=== PATIENT | female | born 1940 | race Caucasian/White ===

== ENCOUNTER 2016-08-13 03:20 | Emergency (ER) | payer OTHER ==
[2016-08-13 03:57] VITALS: BMI 24.6
[2016-08-13] MEDS ORDERED: ONDANSETRON 4 MG/2 ML VIAL IVPUSH ONE (04:10)
[2016-08-13] MEDS ORDERED: SODIUM CHLORIDE 500 ML IV STA (04:10)
[2016-08-13] MEDS ORDERED: morphine CARPU-JECT 4 MG/1 ML DISP.SYRIN IVPUSH ONE (04:10)
--- NOTE | 2016-08-13 04:34 | PDOC ---
History of Present Illness - General Chief Complaint: Pain, Acute Stated Complaint: L ARM PAIN S/P FALL Time Seen by Provider: 08/13/16 03:44 History Source: Patient, Family, Significant Other, Assistant [employer] Used Exam Limitations: Language Barrier - History of Present Illness Initial Comments: 08/13/16 04:30 75yo Female patient presents to ED c/o fall, left arm injury, and dizziness. Patient states while ascending her stairs last night around 10pm, she felt her legs get weak, lost her balance and fell onto her left shoulder/arm. Patient reports taking 1000mg Tylenol at 11pm then again at 1 am with minimal relief. She reports unable to move arm. Patient denies head injury, neck pain, or LOC. Patient denies any other complaints at this time. Occurred: reports: yesterday (10pm) Severity: reports: severe Pain Location: reports: upper extremity Method of Injury: Yes: fall Modifying Factors: improves with: pain medication Loss of Consciousness: no loss of consciousness Past History - Travel Traveled outside of the country in the last 30 days: No Close contact w/someone who was outside of country & ill: No - Past Medical History Allergies/Adverse Reactions: Allergies Allergy/AdvReac Type Severity Reaction Status Date / Time No Known Allergies Allergy Verified 08/13/16 03:55 Home Medications: Ambulatory Orders Amlodipine Besylate [Norvasc -] 2.5 mg PO BID 08/13/16 Aspirin [Ecotrin] 81 mg PO DAILY 08/13/16 Levothyroxine [Synthroid -] 75 mcg PO DAILY 08/13/16 Losartan Potassium 25 mg PO DAILY 08/13/16 Omeprazole 20 mg PO DAILY 08/13/16 Simvastatin [Zocor -] 20 mg PO DAILY 08/13/16 - Psycho/Social/Smoking Cessation Hx Suicidal Ideation: No Smoking History: Never smoked Have you smoked in the past 12 months: No Information on smoking cessation initiated: No Hx Alcohol Use: No Drug/Substance Use Hx: No Trauma Specific PMHX - Complaint Specific PMHX Arthritis: No Back Injury: No Neck Injury: No Hx Sacro Iliac Joint Dysfunction: No Review of Systems - Review of Systems Able to Perform ROS?: Yes Is the patient limited Ni[place]an proficient: Yes Constitutional: No: Chills, Fever Respiratory: No: Cough, Shortness of Breath, Stridor, Wheezing, Hemoptysis Cardiac (ROS): No: Chest Pain, Irregular Heart Rate, Lightheadedness, Palpitations, Syncope, Chest Tightness ABD/GI: No: Diarrhea, Nausea, Poor Appetite, Poor Fluid Intake, Rectal Bleeding , Vomiting, Abdominal cramping : No: Burning, Dysuria, Discharge, Frequency, Flank Pain, Hematuria, Urgency Musculoskeletal: Yes: Joint Pain, Muscle Pain, Other (Left arm tenderness. Patient unable to perform ROM. Equal cash accounting clerk strength). No: Back Pain, Muscle Weakness, Neck Pain Integumentary: No: Bruising, Dryness, Erythema, Flushing, Rash All Other Systems: Reviewed and Negative *Physical Exam - Vital Signs Last Vital Signs Temp Pulse Resp BP Pulse Ox 97.7 F 96 H 14 160/87 96 08/13/16 03:55 08/13/16 03:55 08/13/16 03:55 08/13/16 03:55 08/13/16 03:55 - Physical Exam General Appearance: Yes: Nourished, Appropriately Dressed, Apparent Distress, Moderate Distress. No: Mild Distress, Severe Distress HEENT: positive: EOMI, CASEY, Normal ENT Inspection, Normal Voice, Symmetrical, TMs Normal, Pharynx Normal. negative: Pharyngeal Erythema, Tonsillar Exudate, Tonsillar Erythema, Nasal Congestion, Rhinorrhea, TM Bulging, TM Dull, TM Erythema Neck: positive: Trachea midline, Supple. negative: Decreased range of motion, Stridor, Lymphadenopathy (R), Lymphadenopathy (L) Respiratory/Chest: positive: Lungs Clear, Normal Breath Sounds. negative: Respiratory Distress, Accessory Muscle Use, Labored Respiration, Stridor, Wheezing Cardiovascular: positive: Regular Rhythm, Regular Rate. negative: Edema, JVD, Murmur Gastrointestinal/Abdominal: positive: Normal Bowel Sounds, Soft. negative: Distended, Guarding, Rebound, Tenderness Musculoskeletal: positive: Normal Inspection. negative: CVA Tenderness Extremity: positive: Normal Capillary Refill, Normal Inspection, Swelling (Left Arm). negative: Normal Range of Motion (Left Arm), Erythema, Inflammation Integumentary: positive: Normal Color, Dry, Warm Neurologic: positive: cradle placer II-XII NML intact, Fully Oriented, Alert, Normal Mood/ Affect, Normal Response, Motor Strength /5 ED Treatment Course - RADIOLOGY Radiology Studies Ordered: Category Date Time Status HEAD CT WITHOUT CONTRAST [CT] Stat CT Scan 08/13/16 04:10 Ordered CHEST PA & LAT [RAD] Stat Radiology 08/13/16 04:10 Ordered ELBOW-LEFT [RAD] Stat Radiology 08/13/16 04:10 Ordered FOREARM- LEFT [RAD] Stat Radiology 08/13/16 04:10 Ordered HUMERUS-LEFT [RAD] Stat Radiology 08/13/16 04:10 Ordered SHOULDER-LEFT [RAD] Stat Radiology 08/13/16 04:10 Ordered
[2016-08-13 05:24] LABS: EOSINOPHIL 1.4 % (0-4.5); MCH 26.6 pg (25.7-33.7); MCHC 33.1 g/dl (32.0-36.0); MEAN CELL VOLUME 80.3 fl (80-96); MEAN PLT VOLUME 9.4 fl (7.5-11.1); NEUTROPHILS 74.3 % (42.8-82.8); PLATELET COUNT 216 K/MM3 (134-434); RDW 15.4 % (11.6-15.6); WHITE BLOOD COUNT 9.1 K/mm3 (4.0-10.0)
[2016-08-13] MEDS ORDERED: ONDANSETRON 4 MG/2 ML VIAL ONE (05:26)
[2016-08-13] MEDS ORDERED: morphine CARPU-JECT 4 MG/1 ML DISP.SYRIN ONE (05:26)
[2016-08-13 05:41] LABS: INR 0.96 (0.82-1.09); PROTHROMBIN TIME (PATIENT) 10.6 SEC (9.98-11.88)
[2016-08-13 05:50] LABS: ALBUMIN 3.3 g/dl (3.4-5.0); ANION GAP 8 (8-16); BILIRUBIN,TOTAL 0.2 mg/dL (0.2-1.0); CO2 25 mmol/L (21-32); COCKROFT - GAULT 50.2265; CREATININE 0.9 mg/dL (0.55-1.02); GLUCOSE,RANDOM 115 mg/dL (74-106); SGOT/AST 18 U/L (15-37); SGPT/ALT 24 U/L (12-78); TOT PROT 6.2 g/dl (6.4-8.2)
[2016-08-13 05:53] LABS: ALK PHOS 129 U/L (45-117)
[2016-08-13 05:58] LABS: TROPONIN I < 0.02 ng/ml (0.00-0.05)
[2016-08-13 07:36] VITALS: TEMP 97.9
[2016-08-13 08:09] LABS: URINE APPEARANCE CLEAR; URINE BILIRUBIN NEGATIVE (NEGATIVE); URINE BLOOD NEGATIVE (NEGATIVE); URINE COLOR STRAW; URINE GLUCOSE (UA) NEGATIVE (NEGATIVE); URINE KETONE NEGATIVE (NEGATIVE); URINE NITRITE NEGATIVE (NEGATIVE); URINE PROTEIN NEGATIVE (NEGATIVE); URINE UROBILINOGEN NEGATIVE E.U./dl (0.2-1.0)
[2016-08-13 08:11] LABS: URINE LEUK ESTERASE TRACE (NEGATIVE)
[2016-08-13 08:12] LABS: URINE MUCUS RARE; URINE RBC 1 /hpf (0-3); URINE WBC 3 /hpf (3-5)
[2016-08-13 09:06] VITALS: BP 130/79; PULSE 78
== END 2016-08-13 09:06 | disposition home or self-care (01) ==
LOC: JER 03:20
PROC: 3E033NZ Introduction of Analgesics, Hypnotics, Sedatives into Peripheral Vein, Percutaneous Approach (ICD-10-PCS; principal; 2016-08-13)
PROC: 3E033GC Introduction of Other Therapeutic Substance into Peripheral Vein, Percutaneous Approach (ICD-10-PCS; 2016-08-13)
PROC: 3E0337Z Introduction of Electrolytic and Water Balance Substance into Peripheral Vein, Percutaneous Approach (ICD-10-PCS; 2016-08-13)
DX: M79.602 Pain in left arm (principal); W18.30XA Fall on same level, unspecified, initial encounter; Y93.9 Activity, unspecified; Y92.9 Unspecified place or not applicable; Z79.82 Long term (current) use of aspirin
CPT/HCPCS: 36415; 70450-TC; 71010-TC; 73030-TC-LT; 73060-TC-LT; 73090-TC-LT; 80053; 81003; 81015; 82550; 84484; 85025; 85610; 85730; 99284-25